=== PATIENT | female | born 1995 | race African-American/Black ===

== ENCOUNTER 2020-08-23 11:26 | Outpatient (CLI) | payer OTHER, SELFPAY ==
[2020-08-23 13:06] LABS: HIV 1/2 Ab P24 Ag Result Negative (Negative)
[2020-08-23 13:17] LABS: Hepatitis B Surface Antigen Negative (Negative)
[2020-08-23 13:35] LABS: Hepatitis C Virus Antibody Negative (Negative)
[2020-08-24 09:27] LABS: Rapid Plasma Reagin Non-Reactive (NonReactive)
== END 2020-08-23 11:27 | disposition home or self-care (01) ==
LOC: ANHLAB 11:28
PROVIDERS: PCP Obstetrics & Gynecology; Visit Provider Obstetrics & Gynecology
DX: Z11.3 Encounter for screening for infections with a predominantly sexual mode of transmission (principal); Z11.4 Encounter for screening for human immunodeficiency virus [HIV]; Z11.8 Encounter for screening for other infectious and parasitic diseases
CPT/HCPCS: 36415; 86592; 86703; 86803; 87340; G0432

== ENCOUNTER 2020-09-14 23:13 | Emergency (ER) | payer OTHER, SELFPAY ==
[2020-09-14 23:16] VITALS: BP 142/86; PULSE 97; RESP 18; TEMP 36.2; O2SAT 99
[2020-09-15] MEDS: IBUPROFEN 600 MG TABLET PO (00:22)
--- NOTE | 2020-09-15 00:33 | ED.EAR ---
HPI - Ear Problem General Chief complaint: Ear Stated complaint: L ear and Jaw pain Time Seen by Provider: 09/14/20 23:52 Source: patient and RN notes reviewed Mode of arrival: ambulatory Limitations: no limitations History of Present Illness HPI Narrative: Patient a 24-year-old female who presents with a day and a half of left ear pain patient had placed some hydrogen peroxide in the ear. Patient notes aching pain denies URI symptoms or other complaints and is otherwise resting comfortably in the room has not taken anything for the pain patient also notes that she had placed on drops in the ear but unsure as to what they are that her mother had given her Related Data Allergies Allergy/AdvReac Type Severity Reaction Status Date / Time amoxicillin Allergy Intermediate Hives Verified 09/14/20 23:18 Review of Systems Review of Systems: All systems reviewed & are unremarkable except as noted in HPI and below PMFSH Surgical History Surgical History [place] teeth removed Family History Family History Mother Hypertension Grandparent Cerebrovascular accident Family history of type 2 diabetes mellitus Social History Social History Smoking status: Never smoker Alcohol intake: current Substance use: never Exam Narrative: Exam Narrative: GENERAL: Well-appearing, well-nourished, and in no acute distress. HEAD: Normocephalic, atraumatic. EYES: PERRLA and EOMI. ENT: Nares clear, no rhinorrhea or epistaxis. Mucous membranes moist. Oropharynx without tonsillar hypertrophy exudate or other lesions. Left ear with slight irritation some cerumen in the canal CHEST: Clear to auscultation. No respiratory distress. No wheezes rales or rhonchi HEART: Regular rate and rhythm. No murmur heard. EXTREMITIES: Normal range of motion. No edema. SKIN: Warm, dry, no rash. NEURO: No focal deficits. Alert and oriented x3. PSYCH: Normal mood and affect. Course Course Emergency Course: Patient evaluated the emergency department advised not to place anything else in the ear will be given ENT referral and reasons to return patient agrees with this is afebrile nontoxic-appearing in no distress Vital Signs Vital signs: Vital Signs Temperature 97.2 F L 09/14/20 23:16 Pulse Rate 97 09/14/20 23:16 Respiratory Rate 18 09/14/20 23:16 Blood Pressure 142/86 H 09/14/20 23:16 Pulse Oximetry 99 09/14/20 23:16 Temperature 97.2 F L 09/14/20 23:16 Pulse Rate 97 09/14/20 23:16 Respiratory Rate 18 09/14/20 23:16 Blood Pressure 142/86 H 09/14/20 23:16 Pulse Oximetry 99 09/14/20 23:16 Medical Decision Making MDM Narrative Medical decision making narrative: Patient with left ear pain in no distress will be referred back to ENT and primary care for further evaluation Vital Signs Vital Signs: Vital Signs Temperature 97.2 F L 09/14/20 23:16 Pulse Rate 97 09/14/20 23:16 Respiratory Rate 18 09/14/20 23:16 Blood Pressure 142/86 H 09/14/20 23:16 Pulse Oximetry 99 09/14/20 23:16 Temperature 97.2 F L 09/14/20 23:16 Pulse Rate 97 09/14/20 23:16 Respiratory Rate 18 09/14/20 23:16 Blood Pressure 142/86 H 09/14/20 23:16 Pulse Oximetry 99 09/14/20 23:16 Discharge Plan Discharge Clinical Impression: Acute otalgia Patient Disposition: Home, Self-Care Condition: Stable Instructions: Antibiotic Form Additional Instructions: Follow-up with ear nose and throat in the next day to set up for reevaluation Do not place anything else in your ear Return if symptoms worsen or concerns or any increase in redness swelling pain fever over 100.5 Prescriptions: New ibuprofen [IBU] 600 mg tablet 600 mg PO Q6H PRN (Reason: fever or pain) Qty: 7 RF: 0 Follow-up/Referrals: Ken Husain MD [Physician] - PHYSICIAN,[facility]
[2020-09-15 00:42] VITALS: BP 138/79; PULSE 89; RESP 16; O2SAT 98
== END 2020-09-15 00:42 | disposition home or self-care (01) ==
PROVIDERS: Emergency Provider Emergency Medicine
DX: H92.02 Otalgia, left ear (principal)
CPT/HCPCS: 99283; A9270

== ENCOUNTER 2021-10-23 09:55 | Outpatient (CLI) | payer OTHER, SELFPAY ==
[2021-10-26 06:22] LABS: LH 9.6 mIU/mL (***); Progesterone 1.4 ng/mL (***)
== END 2021-10-23 09:56 | disposition home or self-care (01) ==
LOC: ANHLAB 09:58
PROVIDERS: Visit Provider Obstetrics & Gynecology
DX: N92.6 Irregular menstruation, unspecified (principal)
CPT/HCPCS: 36415; 83001; 83002; 84144